=== PATIENT | female | born 1985 | race Two or more races ===

== ENCOUNTER 2016-06-01 11:57 | Day surgery (SDC) | payer MEDICAID ==
[~2016-06-01 11:57] MED LIST: AMITRIPTYLINE H25 M1 PO; AMITRIPTYLINE100 M1 PO; CYPROHEPTADINE H4 M1 PO; GLUCOPHAGE500 MG PO; IBUPROFEN600 M1 PO; IBUPROFEN800 M1 PO; IBUPROFEN800 MG PO; KEFLEX500 MG PO; LORATADINE10 M2 PO; MECLIZINE HCL12.5 M3 PO; METFORMIN HCL500 M2 PO; PERCOCET 5-3251 EACH PO; PERCOCET 5/3251 TAB PO; PRENATAL VITAMI1 T PO; PRENATAL VITAMI1 TAB; PREPARATION H26 GM PR; TOPAMAX100 M2 PO; VITAMIN D2000 UNI1 PO; VITAMIN D250000 UNI1 PO
[2016-06-01] MEDS ORDERED: MOBIC7.5 M2 PO (12:38)
[2016-06-01] MEDS ORDERED: CYPROHEPTADINE H4 M1 PO (12:38)
[2016-06-01] MEDS ORDERED: GLUCOPHAGE500 M3 PO (12:39)
[2016-06-01 14:28] LABS: ANION GAP 10 mmol/L (0-20); BLOOD UREA NITROGEN 10 mg/dl (6-24); CALCIUM 8.5 mg/dl (8.5-10.5); CARBON DIOXIDE-VENOUS 27 mmol/L (22-32); CHLORIDE 110 mmol/l (96-110); GLUCOSE 94 mg/dL (70-110); POTASSIUM 3.7 mmol/L (3.7-5.1); SODIUM 143 mmol/L (135-145); eGFR VALUE FOR BLACK >90 mL/Min
[2016-06-01 17:37] LABS: BASO % 0.1 % (0-2); EOS % 0.8 % (0-7); EOSINOPHIL ABSOLUTE COUNT 0.1 tho/cmm (0.0-0.7); HCT-HEMATOCRIT 37.2 % (34.0-49.0); HGB-HEMOGLOBIN 12.3 gm/dl (12.0-15.5); IMMATURE GRANULOCYTES ABSOLUTE 0.02 tho/cmm (0-0.03); IMMATURE GRANULOCYTES PERCENT 0.2 % (0-0.3); LYMPH % 17.7 % (20-45); LYMPH ABSOLUTE COUNT 2.3 tho/cmm (0.8-4.5); MCH (MEAN CORPUSCULAR HGB) 26.6 pg (28.0-32.0); MCHC MEAN CORPUSCULAR HGB CONC 33.1 % (32.0-36.0); MCV (MEAN CELL VOLUME) 80.5 fl (82.0-96.0); MEAN PLATELET VOLUME 11.4 cmc (9.4-12.4); MONO % 7.1 % (0-12); MONOCYTE ABSOLUTE COUNT 0.9 tho/cmm (0.0-1.2); NEUTROPHIL ABSOLUTE COUNT 9.8 tho/cmm (1.6-8.0); NEUTROPHIL-AUTOMATED 9.8 tho/cmm (1.6-8.0); NEUTROPHILS % 74.1 % (40-80); RED BLOOD COUNT 4.62 mil/cmm (4.00-5.20); RED CELL DISTRIBUTION WIDTH 13.7 % (12.4-16.4); WHITE BLOOD COUNT 13.2 tho/cmm (4.0-10.0)
[2016-06-01 18:00] LABS: PLATELET COUNT 206 tho/cmm (150-450)
[2016-06-01 18:20] LABS: URINE BILIRUBIN NEGATIVE (NEG); URINE BLOOD NEGATIVE (NEG); URINE GLUCOSE (UA) NEGATIVE (NEG); URINE KETONE NEGATIVE (NEG); URINE LEUKOCYTE ESTERASE NEGATIVE (NEG); URINE NITRITE NEGATIVE (NEG); URINE PROTEIN NEGATIVE (NEG)
[2016-06-01 18:22] LABS: URINE APPEARANCE CLEAR; URINE COLOR PALE YELLOW
[2016-06-02 05:42] LABS: HGB-HEMOGLOBIN 12.2 gm/dl (12.0-15.5); IMMATURE GRANULOCYTES ABSOLUTE 0.01 tho/cmm (0-0.03); IMMATURE GRANULOCYTES PERCENT 0.1 % (0-0.3); LYMPH % 13.2 % (20-45); LYMPH ABSOLUTE COUNT 1.1 tho/cmm (0.8-4.5); MCH (MEAN CORPUSCULAR HGB) 26.2 pg (28.0-32.0); MCV (MEAN CELL VOLUME) 79.6 fl (82.0-96.0); MEAN PLATELET VOLUME 10.8 cmc (9.4-12.4); MONOCYTE ABSOLUTE COUNT 0.3 tho/cmm (0.0-1.2); NEUTROPHILS % 82.7 % (40-80); PLATELET COUNT 208 tho/cmm (150-450); RED BLOOD COUNT 4.65 mil/cmm (4.00-5.20); RED CELL DISTRIBUTION WIDTH 13.8 % (12.4-16.4); WHITE BLOOD COUNT 8.5 tho/cmm (4.0-10.0)
[2016-06-02] MEDS ORDERED: NORCO 5-325 TA1 EACH PO (08:22)
== END 2016-06-02 10:35 ==
LOC: EDMED 11:57 → EMR2 21:04 → ORW 21:54 → PACU 22:17 → 5WD 23:01
PROVIDERS: Emergency Medicine; Surgery
PROC: 0DTJ4ZZ Resection of Appendix, Percutaneous Endoscopic Approach (ICD-10-PCS; principal; 2016-06-01)
DX: K35.80 Unspecified acute appendicitis (principal); K66.0 Peritoneal adhesions (postprocedural) (postinfection); G43.909 Migraine, unspecified, not intractable, without status migrainosus; E11.9 Type 2 diabetes mellitus without complications; Z79.84 Long term (current) use of oral hypoglycemic drugs; Z79.899 Other long term (current) drug therapy; Z87.820 Personal history of traumatic brain injury; Z98.890 Other specified postprocedural states
CPT/HCPCS: J1170; J1335; J2175; J2270; J2405; J3480; J7030; Q9967